=== PATIENT | female | born 1995 | race Caucasian/White ===

== ENCOUNTER 2020-04-21 12:17 | Observation (INO) ==
[2020-04-21 13:10] LABS: Hematocrit 38.3 % (37.0-47.0); Mean Corpuscular Hemoglobin 30.9 pg (27-31); Mean Corpuscular Hgb Conc 33.9 g/dl (32-36); Mean Platelet Volume 9.8 fl (8-12.5); Neutrophil # 6.1 K/mm3 (1.3-6.0); Neutrophil % 75.1 % (42-75.0); Platelet Count 228 K/mm3 (150-450); Red Blood Count 4.21 M/mm3 (4.2-5.4); Red Cell Distribution Width 11.8 % (11.5-14.0); White Blood Count 8.1 K/mm3 (4.0-10.5)
[2020-04-21 13:30] LABS: Albumin * 4.2 gm/dl (3.4-5.0); Anion Gap 15.5 mmol/L (6.8-13.8); BUN/Creatinine Ratio 6.9 (9.0-21.6); Bilirubin, Total 0.5 mg/dL (0.0-1.1); Ca. Corrected For Albumin 9.2 mg/dL (8.4-10.2); Calcium * 9.7 mg/dL (7.9-10.9); Potassium 3.5 mmol/L (3.4-4.6)
--- NOTE | 2020-04-21 13:32 | ERNOTE ---
Abdominal HPI - Narrative Date of Service: 04/21/20 - General Chief Complaint: Abdominal Pain Time Seen by Provider: 04/21/20 12:29 Source: patient - Immun/Allergies/Home Medications Immunizatons: IMMUNIZATION HX Immunizations Up to Date Yes History of Influenza Vaccine No Hx Pneumococcal Vaccination No Allergies/Adverse Reactions: Allergies Penicillins Allergy (Mild, Verified 04/21/20 12:26) Home Medications: HOME MEDICATIONS NK 04/21/20 [Last Taken Unknown] - History of Present Illness Narrative: patient presents to ed with cc of possible ectopic, has seen dr varela and is planned to get shot, abdominal pain persists Timing: constant, getting worse Quality: mild, dullness, stabbing Modifying Factors - (Improves): Present: other - nothing Modifying Factors - (Worsens): Present: other - nothing Associated Symptoms: Present: denies symptoms Prior Abdominal Problems: Present: none Prior Treatment: Present: recently seen, treated by physician Review of Systems - Review of Systems Constitutional: Present: See HPI EYE: Present: no symptoms reported ENT: Present: no symptoms reported Respiratory: Present: no symptoms reported Cardiology: Present: no symptoms reported Gastrointestinal/Abdominal: Present: abdominal pain Genitourinary: Present: no symptoms reported Musculoskeletal: Present: no symptoms reported Skin: Present: no symptoms reported Neurological: Present: no symptoms reported Endocrine: Present: no symptoms reported Hematologic/Lymphatic: Present: no symptoms reported Psych: Present: no symptoms reported Medical History (Last Reviewed 04/21/20 @ 14:32 by Zack Day CRNA) No pertinent past medical history Surgical History: Surgical History (Last Reviewed 04/21/20 @ 14:32 by Zack Day CRNA) No pertinent past surgical history Family History: Family History (Last Reviewed 04/21/20 @ 14:32 by Zack Day CRNA) Mother Diabetes Scoliosis Father Hypertension Social History: (Last Reviewed 04/21/20 @ 14:16 by Krys Varela MD) Social History: adopted: No Marital status: household members: spouse number of children: 0 current occupational status: employed current occupation: [employer] Highest education level completed: some college, no degree Sexually Active: Yes Tobacco: Smoking Status: Never smoker Alcohol: alcohol intake: former details: stopped with Substance Use: substance use type: does not use Dietary Habits: caffeine: Yes Physical Exam - Physical Exam General Appearance: Present: mild distress, anxious Head Exam: Present: normal inspection, no evidence of injury Eye Exam: Normal inspection: bilateral, PERRL: bilateral, EOMI: bilateral Ears, Nose, Throat: Present: normal ENT inspection, normal pharynx Neck: Present: normal inspection, nontender Respiratory: Present: no respiratory distress, normal breath sounds, no accessory muscle use, chest nontender, lungs clear Cardiovascular/Chest: Present: regular rate, rhythm, no murmur, normal peripheral pulses Gastrointestinal/Abdominal: Present: normal bowel sounds, nondistended, soft, no organomegaly, tenderness, other - pain worse in lower right quadrant Back Exam: Present: normal inspection, normal range of motion, no CVA tenderness, no vertebral tenderness Extremity Exam: Present: normal inspection, non-tender, normal range of motion, no edema Neurological Exam: Present: alert, oriented, normal mood/affect, no motor/sensory deficits Skin Exam: Present: normal color, warm/dry Lymphatic Exam: Present: no adenopathy Progress - Date and Time Seen: Date and Time: 04/21/20 14:04 condition unchanged, case discussed with dr lópez. dx ruptured ectopic , case discussed with dr varela presently in deptment evaluating atient, to go to surgery - Results and Orders Patient's Lab Results:: I have reviewed the patient's lab results. - Vital Signs Patient's Vital Signs:: I have reviewed the patient's vital signs. Vital Signs: Vital Signs 04/21/20 12:18 Temperature 36.4 C Pulse Rate 111 H Respiratory Rate 16 Blood Pressure 132/79 O2 Sat by Pulse Oximetry 100 - Progress/Reassessment Chief Complaint: Abdominal Pain Progress:: Unchanged - Transfer of Care Expected Disposition: Admit Plan - Plan Plan: to admit Departure Clinical Impression: Ectopic , tubal - Departure Disposition: Short Term Hospital Inpatient Condition: Serious
[2020-04-21] MEDS ORDERED: NORMAL SALINE 1,000 ML IV ONE (14:03)
[2020-04-21] MEDS ORDERED: ONDANSETRON HCL/PF 2 MG/ML VIAL ONE (14:19)
[2020-04-21] MEDS ORDERED: NEOSTIGMINE METHYLSULFATE 1 MG/ML VIAL ONE (14:19)
[2020-04-21] MEDS ORDERED: fentaNYL CITRATE/PF 50 MCG/ML AMPUL ONE (14:19)
[2020-04-21] MEDS ORDERED: GLYCOPYRROLATE 0.2 MG/ML VIAL ONE (14:19)
--- NOTE | 2020-04-21 14:19 | HP ---
Chief Complaint - Chief Complaint Date of Service: 04/21/20 Time of Service: 14:15 Chief Complaint: RLQ abdominal pain History of Present Illness: 24 year old with a ruptured ectopic with RLQ pain. 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 Highest education level completed: some college, no degree Sexually Active: Yes Tobacco: Smoking Status: Never smoker Alcohol: alcohol intake: former details: stopped with Substance Use: substance use type: does not use Dietary Habits: caffeine: Yes Review Of Systems (GEN) - Review of Systems Generalized/Overall Review: Present: No Symptoms Reported Abdominal: Present: Other - RLQ pain Misc: All systems neg except as marked Immunizations: IMMUNIZATION HX Immunizations Up to Date Yes History of Influenza Vaccine No Hx Pneumococcal Vaccination No Allergies/Adverse Reactions: Allergies Allergy/AdvReac Type Severity Reaction Status Date / Time Penicillins Allergy Mild Verified 04/21/20 12:26 Home Medications: HOME MEDICATIONS NK 04/21/20 [Last Taken Unknown] Exam - Exam Vital Signs: Vital Signs - Last Taken Temp 36.4 C 04/21/20 12:18 Pulse 118 H 04/21/20 14:10 Resp 16 04/21/20 14:10 BP 124/78 04/21/20 14:10 Pulse Ox 100 04/21/20 14:10 Constitutional: Present: Alert, Oriented x3, Cooperative, No distress ENT Exam: Present: hearing grossly normal Eye Exam: bilateral eye: normal inspection Neck: Present: normal inspection Back Exam: Present: normal inspection Breasts: Present: Exam deferred Respiratory: Present: lungs clear, normal breath sounds, no respiratory distress Cardiovascular/Chest: Present: regular rate, rhythm Abdomen: Present: soft, nondistended, tender, rebound tenderness /Rectal: Present: Exam deferred Extremity: Present: non-tender, no calf tenderness Skin Exam: Present: normal color, warm/dry, no cyanosis Neurologic: Present: alert, normal mood/affect, oriented x 3 Appearance: Present: appropriate appearance, appropriate insight, neat, no memory impairment Eye contact: Present: cooperative Thoughts: Present: normal thought pattern Diagnostic Studies: Abnormal Lab Results 04/21/20 04/21/20 04/21/20 Range/Units 13:00 13:00 13:00 Immature Gran % (Auto) 0.60 H (0.001-0.429) % Immature Gran # (Auto) 0.05 H (0.000-0.0310) K/mm3 Neutrophils % 75.1 H (42-75.0) % Lymphocytes % 17.0 L (20-51) % Neutrophils # 6.1 H (1.3-6.0) K/mm3 Lymphocytes # 1.38 L (1.5-3.5) k/mm3 Carbon Dioxide 23.0 L (24-32.6) mmol/L Anion Gap 15.5 H (6.8-13.8) mmol/L BUN/Creatinine Ratio 6.9 L (9.0-21.6) ALT 18 L (19-67) U/L Serum HCG, Qual Positive H (NEGATIVE) Laboratory Results WBC 8.1 K/mm3 (4.0-10.5) 04/21/20 13:00 RBC 4.21 M/mm3 (4.2-5.4) 04/21/20 13:00 Hgb 13.0 gm/dL (12.5-16.0) 04/21/20 13:00 Hct 38.3 % (37.0-47.0) 04/21/20 13:00 MCV 91.0 fl (78-100) 04/21/20 13:00 MCH 30.9 pg (27-31) 04/21/20 13:00 MCHC 33.9 g/dl (32-36) 04/21/20 13:00 RDW 11.8 % (11.5-14.0) 04/21/20 13:00 Plt Count 228 K/mm3 (150-450) 04/21/20 13:00 MPV 9.8 fl (8-12.5) 04/21/20 13:00 Immature Gran % (Auto) 0.60 % (0.001-0.429) H 04/21/20 13:00 Immature Gran # (Auto) 0.05 K/mm3 (0.000-0.0310) H 04/21/20 13:00 Neutrophils % 75.1 % (42-75.0) H 04/21/20 13:00 Lymphocytes % 17.0 % (20-51) L 04/21/20 13:00 Monocytes % 5.4 % (0.0-9) 04/21/20 13:00 Eosinophils % 1.4 % (0.0-3.0) 04/21/20 13:00 Basophils % 0.5 % (0.0-1.0) 04/21/20 13:00 Nucleated RBC % 0.0 k/mm3 (0-1) 04/21/20 13:00 Neutrophils # 6.1 K/mm3 (1.3-6.0) H 04/21/20 13:00 Lymphocytes # 1.38 k/mm3 (1.5-3.5) L 04/21/20 13:00 Monocytes # 0.4 k/mm3 (0.0-1.0) 04/21/20 13:00 Eosinophils # 0.1 k/mm3 (0.0-0.7) 04/21/20 13:00 Absolute Basophils 0.0 k/mm3 (0.0-0.1) 04/21/20 13:00 Sodium 139 mmol/L (132-142) 04/21/20 13:00 Plasma Sodium 139 mmol/L (130-142) 04/21/20 13:00 Potassium 3.5 mmol/L (3.4-4.6) 04/21/20 13:00 Chloride 104 mmol/L (97-106) 04/21/20 13:00 Carbon Dioxide 23.0 mmol/L (24-32.6) L 04/21/20 13:00 Anion Gap 15.5 mmol/L (6.8-13.8) H 04/21/20 13:00 BUN 6 mg/dL (3-23) 04/21/20 13:00 Creatinine 0.87 mg/dL (0.4-1.4) 04/21/20 13:00 Est GFR (Non-Af Amer) 85 mL/min (60-130) 04/21/20 13:00 BUN/Creatinine Ratio 6.9 (9.0-21.6) L 04/21/20 13:00 Random Glucose 101 mg/dL (70-110) 04/21/20 13:00 Calcium 9.7 mg/dL (7.9-10.9) 04/21/20 13:00 Calcium Adj for Albumin 9.2 mg/dL (8.4-10.2) 04/21/20 13:00 Total Bilirubin 0.5 mg/dL (0.0-1.1) 04/21/20 13:00 AST 14 U/L (0-48) 04/21/20 13:00 ALT 18 U/L (19-67) L 04/21/20 13:00 Alkaline Phosphatase 90 U/L (50-170) 04/21/20 13:00 Total Protein 8.0 gm/dL (6.2-8.2) 04/21/20 13:00 Albumin 4.2 gm/dl (3.4-5.0) 04/21/20 13:00 Serum HCG, Qual Positive (NEGATIVE) H 04/21/20 13:00 Assessment/Plan - Narrative Narrative: 24 year old with ruptured ectopic Proceed with laparoscopic salpingo-ostomy, possible salpingectomy. All risks, benefits, and alternatives of the procedure were explained to the patient and the patient consented to the procedure.
[2020-04-21] MEDS ORDERED: PROPOFOL VIAL IV ONE (14:20)
[2020-04-21] MEDS ORDERED: SUCCINYLCHOLINE CHLORIDE 20 MG/ML VIAL ONE (14:20)
[2020-04-21] MEDS ORDERED: ROCURONIUM BROMIDE 10 MG/ML VIAL ONE (14:20)
--- NOTE | 2020-04-21 14:33 | ANES ---
Anesthesia Pre Procedure Eval Vitals/Labs: Last Vital Signs Temp 36.4 C 04/21/20 12:18 Pulse 118 H 04/21/20 14:10 Resp 16 04/21/20 14:10 BP 124/78 04/21/20 14:10 Pulse Ox 100 04/21/20 14:10 HOME MEDICATIONS NK 04/21/20 [Last Taken Unknown] Allergies/Adverse Reactions: Allergies Allergy/AdvReac Type Severity Reaction Status Date / Time Penicillins Allergy Mild Verified 04/21/20 12:26 - Planned Procedure Planned Procedure: Abdominal pain, poss. ectopic Medication List Reviewed:: Yes Allergies Verified: Yes Medical History (Last Reviewed 04/21/20 @ 14:32 by Zack Day CRNA) No pertinent past medical history Surgical History (Last Reviewed 04/21/20 @ 14:32 by Zack Day CRNA) No pertinent past surgical history Family History (Last Reviewed 04/21/20 @ 14:32 by Zack Day CRNA) Mother Diabetes Scoliosis Father Hypertension - Family Anesthesia History Family History:: no untoward family reactions to anesthesia - Airway/Neck/Teeth Within Normal Limits:: Yes Teeth Condition: intact Denture Type: None Neck Exam: full range of motion Mallampatti Score: 1 Thyromental (T-M) distance: > 6 cm Mandibulo Hyoid distance: > 3 cm - Respiratory Respiratory Physical: lungs clear Smoking Status: Never smoker Sleep Apnea currently treated: No Sleep Apnea by current assessment: No - Cardiovascular Tolerate Activity: Good Heart Sounds: S1 & S2, Regular - Gastrointestinal NPO since: 1100 - Anesthesia Assessment and Plan ASA Class: PS, II, E Anesthesia Type Plan: General ET Planned difficult intubation/equipment available: No
[2020-04-21] MEDS ORDERED: LIDOCAINE HCL 20 ML VIAL ONE (14:39)
[2020-04-21] MEDS ORDERED: LIDOCAINE HCL/EPINEPHRINE 30 ML VIAL IJ ONE (15:57)
[2020-04-21] MEDS ORDERED: MORPHINE SULFATE 2 MG/ML DISP.SYRIN IV PRN ×2 (16:18→22:31)
[2020-04-21] MEDS ORDERED: IBUPROFEN 800 MG TABLET PO PRN (16:18)
[2020-04-21] MEDS ORDERED: RINGER'S SOLUTION,LACTATED 1,000 ML IV PRN ×3 (16:18→22:34)
[2020-04-21] MEDS ORDERED: oxyCODONE HCL/ACETAMINOPHEN 1 TAB TABLET PO PRN (16:18)
--- NOTE | 2020-04-21 16:18 | OR ---
Operative Report - Dictated Report Narrative: Preoperative diagnosis: right ectopic Postoperative diagnosis: same Procedure: Laparoscopic right salpingo-ostomy Surgeon: Dr. Cummins Anesthesia: ALICE Anesthesiologist: Clovis Palencia CRNA Description of the procedure: The patient was taken to the operating room where general anesthesia was induced. She was then prepped and draped in the lithotomy position in the standard surgical fashion. Attention was turned to the vagina. A sterile speculum was placed in the patient's vagina. The anterior lip of the cervix was grasped with a single toothed tenaculum. A LASHAUN manipulator was placed using a white tip. Attention was then turned to the abdomen. A 5mm skin incision was made at the punctum of the umbilicus. Two additional 5 mm ports were placed in the RLQ and LLQ respectively. There was a moderate amount of blood in the pelvis. A right ectopic was identified. The right tube was intact. An incision was made longitudinally at the tube and the was removed and sent for pathological analysis. Hemostasis of the fallopian was obtained. All instruments were removed from the abdomen. The skin incisions were closed with 4-0 vicryl. [place] escoto was placed over the incisions. The incisions were covered with band aids. Ten mL of lidocaine with epinephrine was injected at the incisions for hemostasis. All sponge, lap, and needle counts were correct. The patient tolerated the procedure well. She was transferred to the recovery room in stable condition. EBL: minimal Specimens: ectopic Complications: none
[2020-04-21] MEDS ORDERED: HYDROmorphone HCL 2 MG/ML VIAL IM PRN (16:32)
[2020-04-21 16:37] LABS: Hematocrit 34.1 % (37.0-47.0)
--- NOTE | 2020-04-21 16:44 | ANES ---
Post Anesthesia Discharge - Transfer of Care Transfer of Care handoff given to nurse: Yes - Discharge from PACU Discharge from PACU when meets criteria: Yes - Discharge to ASU Discharge to ASU-no complications/pt stable: Yes
--- NOTE | 2020-04-21 16:45 | ANES ---
Post Anesthesia Assessment - Vital Signs Vitals: Last Vital Signs Temp 36.6 C 04/21/20 16:16 Pulse 80 04/21/20 16:16 Resp 15 04/21/20 16:16 BP 103/46 04/21/20 16:16 Pulse Ox 99 04/21/20 16:16 Airway Patency: Normal - Mental Status Level Of Consciousness: Awake - Pain Level Pain Score: 7 - N/V Assessment Nausea/Vomiting Presence: None Dehydration:: No
[2020-04-21 21:33] LABS: Hematocrit 30.6 % (37.0-47.0); Hemoglobin 10.2 gm/dL (12.5-16.0)
[2020-04-22] MEDS: HYDROcodone/ACETAMINOPHEN 1 EACH TABLET PO PRN ×3 (00:08→08:56)
[2020-04-22 06:52] LABS: Hematocrit 27.5 % (37.0-47.0); Mean Cell Volume 92.6 fl (78-100); Mean Corpuscular Hemoglobin 30.3 pg (27-31); Mean Corpuscular Hgb Conc 32.7 g/dl (32-36); Mean Platelet Volume 9.8 fl (8-12.5); Neutrophil % 84.5 % (42-75.0); Platelet Count 183 K/mm3 (150-450); Red Blood Count 2.97 M/mm3 (4.2-5.4); Red Cell Distribution Width 12.1 % (11.5-14.0); White Blood Count 14.2 K/mm3 (4.0-10.5)
--- NOTE | 2020-04-22 07:55 | PN ---
Subjective - Date and Time Seen Date: 04/22/20 Time: 07:52 Subjective Narrative: Patient reports feeling better. She is no longer dizzy or lightheaded. Has ambulated without difficulty Objective Objective Narrative: See vital signs - Review of Systems Generalized/Overall Review: Reports: No Symptoms Reported Misc: All systems neg except as marked - Vitals Vitals: Last Vital Signs Temp 36.4 C 04/22/20 06:58 Pulse 86 04/22/20 06:58 Resp 16 04/22/20 06:58 BP 109/56 04/22/20 06:58 Pulse Ox 100 04/22/20 06:58 - Abnormal Lab Findings Abnormal Lab Findings: Abnormal Lab Results 04/21/20 04/21/20 04/21/20 Range/Units 13:00 13:00 13:00 WBC (4.0-10.5) K/mm3 RBC (4.2-5.4) M/mm3 Hgb (12.5-16.0) gm/dL Hct (37.0-47.0) % Immature Gran % (Auto) 0.60 H (0.001-0.429) % Immature Gran # (Auto) 0.05 H (0.000-0.0310) K/mm3 Neutrophils % 75.1 H (42-75.0) % Lymphocytes % 17.0 L (20-51) % Neutrophils # 6.1 H (1.3-6.0) K/mm3 Lymphocytes # 1.38 L (1.5-3.5) k/mm3 Carbon Dioxide 23.0 L (24-32.6) mmol/L Anion Gap 15.5 H (6.8-13.8) mmol/L BUN/Creatinine Ratio 6.9 L (9.0-21.6) ALT 18 L (19-67) U/L Serum HCG, Qual Positive H (NEGATIVE) Maternal Serum HCG (0-6) mIU/mL 04/21/20 04/21/20 04/21/20 Range/Units 13:32 16:30 21:25 WBC (4.0-10.5) K/mm3 RBC (4.2-5.4) M/mm3 Hgb 11.0 L 10.2 L (12.5-16.0) gm/dL Hct 34.1 L 30.6 L (37.0-47.0) % Immature Gran % (Auto) (0.001-0.429) % Immature Gran # (Auto) (0.000-0.0310) K/mm3 Neutrophils % (42-75.0) % Lymphocytes % (20-51) % Neutrophils # (1.3-6.0) K/mm3 Lymphocytes # (1.5-3.5) k/mm3 Carbon Dioxide (24-32.6) mmol/L Anion Gap (6.8-13.8) mmol/L BUN/Creatinine Ratio (9.0-21.6) ALT (19-67) U/L Serum HCG, Qual (NEGATIVE) Maternal Serum HCG 5576 H D (0-6) mIU/mL 04/22/20 Range/Units 06:47 WBC 14.2 H D (4.0-10.5) K/mm3 RBC 2.97 L (4.2-5.4) M/mm3 Hgb 9.0 L (12.5-16.0) gm/dL Hct 27.5 L (37.0-47.0) % Immature Gran % (Auto) (0.001-0.429) % Immature Gran # (Auto) 0.06 H (0.000-0.0310) K/mm3 Neutrophils % 84.5 H (42-75.0) % Lymphocytes % 8.7 L (20-51) % Neutrophils # 12.0 H (1.3-6.0) K/mm3 Lymphocytes # 1.24 L (1.5-3.5) k/mm3 Carbon Dioxide (24-32.6) mmol/L Anion Gap (6.8-13.8) mmol/L BUN/Creatinine Ratio (9.0-21.6) ALT (19-67) U/L Serum HCG, Qual (NEGATIVE) Maternal Serum HCG (0-6) mIU/mL - Exam Constitutional: Present: Alert, Oriented x3, Cooperative, No distress Abdomen: Present: soft, nondistended - appropriately tender, incisions c/d/i Extremity: Present: non-tender, no calf tenderness Skin Exam: Present: normal color, warm/dry, no cyanosis Neurologic: Present: alert, normal mood/affect, oriented x 3 Appearance: Present: appropriate appearance, appropriate insight, neat, no memory impairment Eye contact: Present: cooperative, good eye contact, normal speech Thoughts: Present: normal thought pattern Assessment/Plan Plan Narrative: 24 year old s/p laparoscopic right salpingo-ostomy Patient admitted overnight due to hypotension related to ambulation likely secondary to anesthesia The patient is ambulating without difficulty VSS The patient is no longer feeling lightheaded Discharge today Follow-up in 2 weeks, quant next Tuesday
--- NOTE | 2020-04-22 09:22 | DS ---
(1) Hypotension after procedure Problem: Acute Date of Discharge:: 04/22/20 Hospital Course: Patient admitted overnight for symptomatic hypotension. Pt is asymptomatic and ambulating now. Procedures Performed: see notes below List Procedures: Laparoscopic right salpingo-ostomy Results and Findings: Lab Pending Results 04/21/20 13:00: WBC 8.1, RBC 4.21, Hgb 13.0, Hct 38.3, MCV 91.0, MCH 30.9, MCHC 33.9, RDW 11.8, Plt Count 228, MPV 9.8, Immature Gran % (Auto) 0.60 H, Immature Gran # (Auto) 0.05 H, Neutrophils % 75.1 H, Lymphocytes % 17.0 L, Monocytes % 5.4, Eosinophils % 1.4, Basophils % 0.5, Nucleated RBC % 0.0, Neutrophils # 6.1 H, Lymphocytes # 1.38 L, Monocytes # 0.4, Eosinophils # 0.1, Absolute Basophils 0.0 04/21/20 13:00: Sodium 139, Plasma Sodium 139, Potassium 3.5, Chloride 104, Carbon Dioxide 23.0 L, Anion Gap 15.5 H, BUN 6, Creatinine 0.87, Est GFR (Non-Af Amer) 85, BUN/Creatinine Ratio 6.9 L, Random Glucose 101, Calcium 9.7, Calcium Adj for Albumin 9.2, Total Bilirubin 0.5, AST 14, ALT 18 L, Alkaline Phosphatase 90, Total Protein 8.0, Albumin 4.2 04/21/20 13:00: Serum HCG, Qual Positive H 04/21/20 13:32: Maternal Serum HCG 5576 H D 04/21/20 14:31: Blood Type O Positive, Antibody Screen Negative 04/21/20 16:30: Hgb 11.0 L, Hct 34.1 L 04/21/20 16:50: SARS-CoV-2 (PCR) Not detected 04/21/20 21:25: Hgb 10.2 L, Hct 30.6 L 04/22/20 06:47: WBC 14.2 H D, RBC 2.97 L, Hgb 9.0 L, Hct 27.5 L, MCV 92.6, MCH 30.3, MCHC 32.7, RDW 12.1, Plt Count 183, MPV 9.8, Immature Gran % (Auto) 0.40, Immature Gran # (Auto) 0.06 H, Neutrophils % 84.5 H, Lymphocytes % 8.7 L, Monoc ytes % 6.2, Eosinophils % 0.1, Basophils % 0.1, Nucleated RBC % 0.0, Neutrophils # 12.0 H, Lymphocytes # 1.24 L, Monocytes # 0.9, Eosinophils # 0.0, Absolute Basophils 0.0 Discharge Location: Home Disposition: Home self-care Condition: Serious Discharge Activity: Activity as tolerated Discharge Diet: General/regular food Referrals: [facility] [Non Staff Physicians] - Problem Oriented Discharge Instructions to Patient/Family: Ectopic , Laparoscopic Tubal Ligation, Care After Additional Patient Instructions (free text): Please call Dr. Cummins's office at [phone] if you have any questions or concerns. Follow up with Dr. Cummins May 07 at 9:30 a.m. Complete Home Medications List: Complete Home Medication List: HYDROcodone/ACETAMINOPHEN [[place] 5-325] 1 ea PO Q4H PRN tab 04/22/20 Forms: Patient Portal Registration
[2020-04-22 09:29] VITALS: BP 117/62
== END 2020-04-22 09:40 | disposition home or self-care (01) ==
LOC: ER 12:17 → MS 14:32 → AMB 14:32
PROVIDERS: ADMIT Obstetrics & Gynecology; ATTEND Obstetrics & Gynecology
DX: I95.81 Postprocedural hypotension; O00.101 Right tubal pregnancy without intrauterine pregnancy; Z3A.01 Less than 8 weeks gestation of pregnancy
CPT/HCPCS: 36415; 76830; 80053; 84702; 84703; 85014; 85018; 85025; 86850; 88305; 88888; 96372; 99284; C9803; G0378; J2405